=== PATIENT | female | born 1950 | race Caucasian/White ===

== ENCOUNTER 2023-07-30 12:31 | Outpatient (AMB) | payer MEDICARE, SELFPAY ==
--- NOTE | 2023-07-30 12:28 | AM.OFFWIN_ITS ---
Intake Vital Signs 07/30/23 12:34 Height 4 ft 11 in Weight 247 lb BMI 49.9 BP 140/90 H Blood Pressure Location Lt brachial Position Sitting Pulse 110 H Pulse Source Pulse Oximeter Temp 97.9 F Temp Source Temporal Artery Scan Pulse Oximetry (%) 97 Oxygen Delivery Method Room Air Intake Visit Reasons: EP RT shoulder pain radiates down arm (lobby) Intake Note: pt is here today for rt shoulder pain radiates down arm started 1 week ago Patient Tobacco Use Status: Never used Tobacco Allergies amoxicillin [AMOXICILLIN] Allergy (Unknown, Verified 07/30/23 12:38) RASH Sulfa (Sulfonamide Antibiotics) Allergy (Unknown, Verified 07/30/23 12:38) Unknown sulfamethoxazole [From BACTRIM] Allergy (Unknown, Verified 07/30/23 12:38) RASH trimethoprim [From BACTRIM] Allergy (Unknown, Verified 07/30/23 12:38) RASH Do you need a note to return to daycare/school/sports/work: No HPI HPI Comments History of Present Illness Details 73 y/o female patient who presents to [facility] with c/o right shoulder pain since the weekend. Pt does not recall any injury or trauma. Repo rts limited ROM due to pain. Reports that pain radiates down to her Arm. PFSH Social History Patient Tobacco Use Status: Never used Tobacco Review of Systems Const All systems reviewed & are unremarkable except as noted in HPI and below Physical Exam Vital Signs: Last Vital Signs Temp 97.9 F 07/30/23 12:34 Pulse 110 H 07/30/23 12:34 BP 140/90 H 07/30/23 12:34 Pulse Ox 97 07/30/23 12:34 Oxygen Delivery Method Room Air 07/30/23 12:34 BMI result Body Mass Index 49.9 Const General: comfortable and no acute distress Nutritional Appearance: obese Orientation/consciousness: patient oriented x3 Limitations: ambulation with walker Neuro General: patient oriented x3 Extrem Right upper extremity: shoulder/upper arm (Limited ROM due to pain) Details: normal to inspection and tenderness Location: of the proximal humerus; no swelling, no lacerations, no ecchymosis, no crepitus and no deformity; no edema Left upper extremity: normal to inspection and full ROM Psych Speech and movement: Normal speech and movement present Assessment & Plan Assessment & Plan (1) Right shoulder pain: Code(s): M25.511 - Pain in right shoulder Qualifiers: Chronicity: acute Qualified Code(s): M25.511 - Pain in right shoulder Plan: - XR to r/o Fx - Acetaminophen for pain relief. Orders: Orders XR shoulder RT min 2V Today M25.511 - Pain in right shoulder Medications: New cyclobenzaprine 7.5 mg PO BEDTIME 14 tabs 0RF M25.511 - Pain in right shoulder lidocaine 5% leave on most painful area for up to 12 hrs 1 patch topical DAILY 15 ea 0RF M25.511 - Pain in right shoulder Coding Level of Care Code Est Pt Level 4 (74857) Diagnoses Acute pain of right shoulder M25.511 Chronicity: acute Time Spent (min) 15
[2023-07-30 12:34] VITALS: BP 140/90; PULSE 110; TEMP 36.6; O2SAT 97; BMI 49.9
== END 2023-07-30 14:03 | disposition home or self-care (01) ==
PROVIDERS: PCP Internal Medicine; Visit Provider Nurse Practitioner Family
DX: M25.511 Pain in right shoulder (principal)
CPT/HCPCS: 99214

== ENCOUNTER 2023-07-30 12:47 | Outpatient (REF) | payer MEDICARE, SELFPAY ==
--- NOTE | ~2023-07-30 | XR_ITS ---
EXAMINATION: XR SHOULDER, RIGHT CLINICAL INFORMATION: Right shoulder pain COMPARISON: None available. TECHNIQUE: AP external rotation, Grashey, scapular Y, and axillary views of the right shoulder. FINDINGS: Mild AC joint narrowing. Mild inferior glenoid spurring. No fracture or dislocation. Visualized lung and ribs are unremarkable. XR/XR shoulder RT min 2V IMPRESSION: Very mild degenerative type changes. No acute bony pathology.
== END 2023-07-30 12:48 | disposition home or self-care (01) ==
LOC: HO.HMGCX 12:47
PROVIDERS: PCP Internal Medicine; Visit Provider Nurse Practitioner Family
DX: M25.511 Pain in right shoulder (principal)
CPT/HCPCS: 73030